=== PATIENT | female | born 1990 | race Two or more races ===

== ENCOUNTER 2018-01-06 03:48 | Inpatient (IN) | payer MEDICAID ==
[~2018-01-06] VITALS: Ht 157.5 cm; Wt 116.6 kg
[~2018-01-06 03:48] MED LIST: PREN-96 PO
[2018-01-06] MEDS ORDERED: LIDOCAINE 2% (LOCAL ANESTH.) PF 5ml SDV ID ONE (04:45)
[2018-01-06] MEDS ORDERED: PHISODERM TOP SOLN 240ML BTL TOP PRN (04:45)
[2018-01-06] MEDS ORDERED: WITCH HAZEL-GLYCERIN PAD TOP PRN (04:45)
[2018-01-06] MEDS ORDERED: METHYLERGONOVINE MALEATE 0.2 MG/ML AMP IM PRN (04:45)
[2018-01-06] MEDS ORDERED: DERMOPLAST 60ML BOTTLE TOP PRN (04:45)
[2018-01-06 05:45] LABS: Basophils # (auto) 0 uL; Basophils % (auto) 0.1 % (0.0-2.0); Eosinophils # (auto) 0 uL; Eosinophils % (auto) 0.2 % (0.0-7.0); Hematocrit 36.6 % (36.0-46.0); Hemoglobin 12.5 g/dL (12.2-16.2); Lymphocytes # (auto) 1.3 uL; Mean Corpuscular Hemoglobin 29.3 pg (28.0-32.0); Mean Corpuscular Hgb Conc. 34.3 g/dL (32.0-36.0); Mean Corpuscular Volume 85.2 fL (80.0-100.0); Monocytes # (auto) 0.5 uL; Monocytes % (auto) 4.6 % (0.0-12.0); Neutrophils % (auto) 83.1 % (37.0-80.0); Platelet Count (auto) 181 10^3/uL (140-450); Red Blood Cells 4.29 10^6/uL (4.0-5.20); White Blood Cell 10.8 10^3/uL (4.4-10.8)
[2018-01-06 05:57] LABS: INR 0.88 (0.9-1.15); Partial Thromboplastin Time 26.6 sec (23.78-33.04); Prothrombin Time 9.5 sec (9.27-12.13)
[2018-01-06 05:58] LABS: Albumin 2.6 g/dL (3.4-5.0); BUN/Creatinine Ratio 21.3; Calcium 8.9 mg/dL (8.5-10.1); Potassium 3.8 mmol/L (3.5-5.1)
[2018-01-06 06:07] LABS: Bilirubin, Total 0.3 mg/dL (0.2-1.0); Total Protein 7.1 g/dL (6.4-8.2)
[2018-01-06] MEDS: LACTATED RINGER'S 1,000 ML IV SCH ×3 (06:30→22:26)
[2018-01-06] MEDS ORDERED: NALBUPHINE HCL 10 MG/1ml INJECTION ONE (06:38)
[2018-01-06] MEDS ORDERED: PROMETHAZINE HCL 25 MG/ML 1ML ONE (06:39)
[2018-01-06] MEDS ORDERED: ePHEDrine SULFATE 50 MG/ML AMP IV ONE ×2 (07:30→10:00)
[2018-01-06] MEDS ORDERED: fentaNYL CITRATE 100 MCG/2 ML VL IV ONE (07:30)
[2018-01-06] MEDS ORDERED: LIDOCAINE HCL 2 %PF INJ 10ML AMP IJ ONE (07:30)
[2018-01-06] MEDS ORDERED: NALOXONE HCL 0.4 MG/ML VIAL IV ONE ×2 (07:30→10:00)
[2018-01-06] MEDS ORDERED: LIDOCAINE 2% (LOCAL ANESTH.) PF 5ml SDV IJ ONE (07:30)
[2018-01-06] MEDS ORDERED: LACT. RINGERS/OXYTOCIN 20UNITS 1,000 ML IV SCH (09:51)
[2018-01-06] MEDS ORDERED: fentaNYL W ROPIVACAINE 150 ML EPI SCH (10:00)
[2018-01-06] MEDS ORDERED: TERBUTALINE SULFATE 1 MG/ML 1ML VIAL SC ONE (10:00)
[2018-01-06 12:18] LABS: Basophils # (auto) 0 uL; Basophils % (auto) 0.1 % (0.0-2.0); Eosinophils # (auto) 0 uL; Eosinophils % (auto) 0.1 % (0.0-7.0); Hematocrit 35.9 % (36.0-46.0); Hemoglobin 12.2 g/dL (12.2-16.2); Lymphocytes # (auto) 0.8 uL; Lymphocytes % (auto) 7.8 % (10.0-50.0); Mean Corpuscular Hemoglobin 29.4 pg (28.0-32.0); Mean Corpuscular Hgb Conc. 33.9 g/dL (32.0-36.0); Mean Corpuscular Volume 86.6 fL (80.0-100.0); Monocytes # (auto) 0.4 uL; Monocytes % (auto) 3.6 % (0.0-12.0); Neutrophils # (auto) 9.5 uL; Neutrophils % (auto) 88.4 % (37.0-80.0); Platelet Count (auto) 175 10^3/uL (140-450); Red Blood Cells 4.14 10^6/uL (4.0-5.20); Red Cell Distribution Width 14.8 % (11.8-14.3); White Blood Cell 10.7 10^3/uL (4.4-10.8)
[2018-01-06] MEDS ORDERED: ACETAMINOPHEN 325 MG TAB PO ONE (12:21)
[2018-01-06] MEDS ORDERED: ceFAZolin 1GM/50ML 50 ML IV ONE (12:21)
[2018-01-06] MEDS ORDERED: ACETAMINOPHEN 325 MG TAB PO PRN (12:30)
[2018-01-06] MEDS: ceFAZolin 1GM/50ML 50 ML IV SCH ×2 (14:00→22:25)
[2018-01-06] MEDS ORDERED: IBUPROFEN 600 MG TAB PO PRN (16:00)
[2018-01-06 19:00] VITALS: BP 117/52
[2018-01-06 23:00] VITALS: BP 122/63
[2018-01-06] MEDS ORDERED: RHO (D) IMMUNE GLOBULIN 300 MCG INJ IM ONE (23:15)
[2018-01-07 02:40] VITALS: BP 116/70
[2018-01-07 03:06] LABS: RPR Non Reactive (Non Reactive)
[2018-01-07] MEDS: ceFAZolin 1GM/50ML 50 ML IV SCH (05:51)
[2018-01-07 07:00] VITALS: BP 112/54
[2018-01-07 11:00] VITALS: BP 115/65
[2018-01-07 15:00] VITALS: BP 123/66
[2018-01-07] MEDS ORDERED: DOCUSATE CALCIUM 240 MG CAP PO SCH (17:00)
== END 2018-01-07 18:15 | disposition home or self-care (01) | DRG 560 ==
LOC: LDRP 03:48 → OBSVTOIN 03:48 → LDRP 05:40
PROVIDERS: ADMIT Obstetrics & Gynecology; ATTEND Obstetrics & Gynecology
PROC: 10E0XZZ Delivery of Products of Conception, External Approach (ICD-10-PCS; principal; 2018-01-06)
PROC: 3E0R3BZ Introduction of Anesthetic Agent into Spinal Canal, Percutaneous Approach (ICD-10-PCS; 2018-01-06)
PROC: 00HU33Z Insertion of Infusion Device into Spinal Canal, Percutaneous Approach (ICD-10-PCS; 2018-01-06)
PROC: 30233S1 Transfusion of Nonautologous Globulin into Peripheral Vein, Percutaneous Approach (ICD-10-PCS; 2018-01-07)
DX: O77.0 Labor and delivery complicated by meconium in amniotic fluid (principal); O72.1 Other immediate postpartum hemorrhage; Z37.0 Single live birth; Z3A.39 39 weeks gestation of pregnancy
CPT/HCPCS: 36415; 59025; 59409; 62282; 80053; 85025; 85610; 85730; 86592; 86850; 86900; 86901; 87040; 90384; 94762; 96365; 96366; J0690; J2001; J2590; J3010